=== PATIENT | male | born 1995 | race Caucasian/White ===

== ENCOUNTER 2019-09-30 21:11 | Emergency (ER) | payer BC ==
[2019-09-30] MEDS ORDERED: Adacel (T-DAP) 0.5 ML SYRINGE ONE (22:15)
--- NOTE | 2019-09-30 23:23 | RAD ---
Exam: XR Foot Lt 3 View STANDARD HISTORY: Laceration. Fifth toe redness. Patient cut toe on a boat dock. COMPARISON: None FINDINGS: No radiopaque foreign body is visualized. No acute fracture, dislocation, or other acute osseous abnormality is identified. IMPRESSION: No acute osseous abnormality is identified.
== END 2019-09-30 23:41 | disposition home or self-care (01) ==
LOC: ERS 21:11
DX: S91.312A Laceration without foreign body, left foot, initial encounter (principal); L03.116 Cellulitis of left lower limb; F17.210 Nicotine dependence, cigarettes, uncomplicated; W45.8XXA Other foreign body or object entering through skin, initial encounter
CPT/HCPCS: 90471; 90715